=== PATIENT | female | born 1985 | race Caucasian/White ===

== ENCOUNTER → 2019-01-12 | Outpatient (CLI) | payer OTHER ==
[~2019-01-12] MED LIST: PROHANCE 279.3MG/ML 15ML VIAL (A9576) As Ordered ONE
--- NOTE | 2019-01-13 08:39 | REP ---
MRI PITUITARY WITHOUT AND WITH CONTRAST: HISTORY: Hyperprolactinemia. CONTRAST: ProHance 8 mL. There are no areas of abnormal signal intensity in the brain parenchyma. There is no intraparenchymal hemorrhage, infarct, mass or midline shift. The ventricular system is normal in appearance. There is no extracerebral collection. A 4.4 mm focus of mixed signal intensity is present in the right side of the pituitary gland. There is minimal heterogeneous enhancement with contrast. There is enlargement of the right side of the pituitary gland with extension into the suprasellar cistern. The infundibulum is midline. There is no extension into the right cavernous sinus. Minimal mucosal thickening is present in the left sphenoid sinus. IMPRESSION: There is a 4.4 mm focus of mixed signal intensity in the right side of the pituitary gland consistent with a microadenoma. Electronically Signed by Zach Saeed MD 01/13/2019 08:43 A
== END ==
LOC: M RAD 16:18
PROVIDERS: ATTEND Internal Medicine
DX: E22.1 Hyperprolactinemia (principal); E23.6 Other disorders of pituitary gland
CPT/HCPCS: 70553; A9576

== ENCOUNTER → 2020-01-17 | Outpatient (CLI) | payer OTHER ==
[~2020-01-17] MED LIST changes: -PROHANCE 279.3MG/ML 15ML VIAL (A9576) As Ordered ONE; +PROHANCE 279.3MG/ML 5ML VIAL (A9576) As Ordered ONE
--- NOTE | 2020-01-18 09:24 | REP ---
MRI BRAIN AND PITUITARY GLAND WITHOUT AND WITH IV GADOLINIUM: HISTORY: Hyperprolactinemia. Comparison MRI study January 12, 2019. This was read as showing a 4.4 mm focus of mixed signal intensity in the right side of the pituitary gland consistent with a microadenoma. CT CONTRAST DOSE: 6 mL of intravenous ProHance. MR TECHNIQUE: Axial, coronal, and sagittal imaging planes were utilized. T1 and T2-weighted sequences include spin-echo, fast spin echo, diffusion, flair, and dynamic postcontrast thin section coronal imaging. Whole brain and thin section pituitary fossa post contrast imaging is included. MRI FINDINGS: There is a slightly heterogeneous nodular area of decreased contrast enhancement just to the right of midline in the pituitary gland unchanged from the comparison study of a year ago and consistent with a pituitary microadenoma. The pituitary gland is 6-7 mm in craniocaudal height. This is unchanged. The pituitary stalk enhances normally and is in the midline. The suprasellar cistern is clear. Optic chiasm is unremarkable. No abnormality is seen in the cavernous sinus on either side. There is no abnormal intracranial contrast enhancement on whole brain postcontrast images. No vascular abnormality is seen. Diffusion weighted scans show no evidence of restricted diffusion. No other mass, extra-axial fluid collection, infarct, or midline shift is seen. There is no evidence of significant paranasal sinus disease. No intraorbital abnormality. IMPRESSION: Findings unchanged from the 1 year previous study January 12, 2019. Findings consistent with a stable 4 mm right paramedian pituitary microadenoma. Electronically Signed by Jass Rod MD 01/18/2020 10:06 A
== END ==
LOC: M RAD 15:06
PROVIDERS: ATTEND Nurse Practitioner Family
DX: E22.1 Hyperprolactinemia (principal)
CPT/HCPCS: 36415; 70553; 84146; A9576

== ENCOUNTER 2020-04-02 08:08 | Day surgery (SDC) | payer OTHER ==
[~2020-04-02] VITALS: Ht 165.1 cm; Wt 73.9 kg
[~2020-04-02 08:08] MED LIST changes: +CELE100C PO; +CONC27TA4 PO; +GABA600T4 PO; +KETOROLAC 60MG 2ML VIAL As Ordered ONE; +LATU120T PO; +LIDOCAINE 2% 100MG/5ML SDV (FOR ANES.) As Ordered ONE; +LR 1,000 ML IV ONE; +MIDAZOLAM INJ 2MG/2ML VIAL (J2250 PER 1MG) As Ordered ONE; +ONDANSETRON 4MG/2ML VIAL As Ordered ONE; -PROHANCE 279.3MG/ML 5ML VIAL (A9576) As Ordered ONE; +PROZ40CA PO; +TOPA200T7 PO; +VENTAER INH; +dexameTHASONE 4 MG/ML 1ML VIAL (J1100 PER 1MG) As Ordered ONE; +fentaNYL 100 MCG/2 ML INJECTION (J3010) As Ordered ONE; +propofoL 200 MG/20 ML VIAL As Ordered ONE
[2020-04-02] MEDS ORDERED: BUPIVACAINE/EPIN 0.25% 30 ML VIAL As Ordered ONE (08:42)
[2020-04-02] MEDS ORDERED: KLON0.5T PO (08:47)
[2020-04-02] MEDS ORDERED: CYCL5TAB PO (08:48)
[2020-04-02 08:51] LABS: HEMATOCRIT 44.7 % (36.0-47.0); HEMOGLOBIN 14.2 g/dl (12.0-15.5); MEAN CORPUSCULAR HEMOGLOBIN 29.5 pg (27.0-33.0); MEAN CORPUSCULAR HGB CONC 31.8 g/dl (32.0-36.5); MEAN CORPUSCULAR VOLUME 92.9 fl (80.0-96.0); PLATELET COUNT, AUTOMATED 257 10^3/uL (150-450); RED BLOOD COUNT 4.81 10^6/uL (4.00-5.40); WHITE BLOOD COUNT 5.8 10^3/uL (4.0-10.0)
[2020-04-02] MEDS ORDERED: ceFAZolin SOD 1 GM in D5W MINI-BAG PLUS 50 ML IV ONE (09:00)
[2020-04-02 09:06] LABS: HCG, SERUM QUALITATIVE NEGATIVE (NEGATIVE)
[2020-04-02] MEDS ORDERED: fentaNYL 100 MCG/2 ML INJECTION (J3010) IV PRN (11:30)
[2020-04-02] MEDS ORDERED: ONDANSETRON 4MG/2ML VIAL IV PRN (11:30)
[2020-04-02] MEDS ORDERED: LR 1,000 ML IV SCH (11:30)
[2020-04-02] MEDS ORDERED: METOCLOPRAMIDE INJ 10MG/2ML VIAL (J2765 PER 1) IV PRN (11:30)
[2020-04-02] MEDS ORDERED: KETOROLAC 30 MG/ML 1ML VIAL IV PRN (11:30)
--- NOTE | 2020-04-02 11:42 | POST-OPPD ---
Postoperative Procedure Note Date Of Procedure: Apr 02, 2020 PREOPERATIVE DIAGNOSIS: cervical HGSIL, left vulvar cyst POSTOPERATIVE DIAGNOSIS: cervical HGSIL FINDINGS: Decreased lugos uptake from 12-3oclock region, no vulvar cyst visualized or palpated PROCEDURE: exam under anesthesia, LEEP, ECC SURGEON: Radha Crook DO RADAR SIGNAL PROCESSING ENGINEER: none ANESTHESIA: general SPECIMENS: LEEP, ecc ESTIMATED BLOOD LOSS: < 5CC REPLACED: 800cc DRAINS: none COMPLICATIONS: none POSTOPERATIVE CONDITION: stable Detailed description of procedure: Material to lab: LEEP specimen suture at 12 oclock, ECC Description of procedure: The risks, benefits, indications and alternatives of the procedure were reviewed with the patient and informed consent was obtained. Risk of bleeding, infection, pain, need for repeat procedure, increased risk of delivery discussed with patient. She expresses understanding and desires to proceed. Patient was brought to OR with IV running. Patient placed under general anesthesia. Placed in lithotomy position. Vaginal and perineum prepped and draped. An insulated speculum placed in the vagina and cervix identified. Transformation zone visualized. Paracervical block performed using Marcain 0.25% with epi (15cc used). Parous appearing cervix. Lugols applied. Decreased uptake noted from 12-3oclock region. IUD string visualized and tucked intracervical using cutips. Loop caudery size [id number] used. Power set to 60/60. Left to right pass and tissue collected. Cervix cauderized thoroughly, hemostatic. ECC performed and cytobrush used to collect specimen. IUD string moved to external cervix, intact. Monsels placed. All instruments removed from vagina. Examining of left vulvar, no cyst visualized. Unable to palpate any abnormal mass. Vulvar cystectomy portion of procedure not performed. Count correct x 2. RADHA CROOK DO Apr 02, 2020 11:42
[2020-04-02 12:27] VITALS: BP 104/67
[2020-05-30] MEDS ORDERED: GABA-282 PO (13:44)
[2020-06-03] MEDS ORDERED: GABA-282 PO (03:19)
== END 2020-04-02 12:32 | disposition home or self-care (01) ==
LOC: M SDC 08:08
PROVIDERS: ATTEND Obstetrics & Gynecology
DX: D06.9 Carcinoma in situ of cervix, unspecified (principal); J45.909 Unspecified asthma, uncomplicated; G43.909 Migraine, unspecified, not intractable, without status migrainosus; M79.7 Fibromyalgia; F41.9 Anxiety disorder, unspecified; F31.9 Bipolar disorder, unspecified; F32.9 Major depressive disorder, single episode, unspecified; F84.0 Autistic disorder; Z79.899 Other long term (current) drug therapy; Z79.51 Long term (current) use of inhaled steroids
CPT/HCPCS: 36415; 57522; 84703; 85027; 88305; 88307; J0690; J1100; J1885; J2250; J2405; J3010

== ENCOUNTER 2020-05-21 03:40 | Inpatient (IN) | payer OTHER ==
[~2020-05-21 03:40] MED LIST changes: +CYCL5TAB PO; -KETOROLAC 60MG 2ML VIAL As Ordered ONE; +KLON0.5T PO; -LIDOCAINE 2% 100MG/5ML SDV (FOR ANES.) As Ordered ONE; -LR 1,000 ML IV ONE; -MIDAZOLAM INJ 2MG/2ML VIAL (J2250 PER 1MG) As Ordered ONE; -ONDANSETRON 4MG/2ML VIAL As Ordered ONE; -dexameTHASONE 4 MG/ML 1ML VIAL (J1100 PER 1MG) As Ordered ONE; -fentaNYL 100 MCG/2 ML INJECTION (J3010) As Ordered ONE; -propofoL 200 MG/20 ML VIAL As Ordered ONE
[2020-05-21] MEDS ORDERED: PROPOFOL 1,000 MG/100 ML VIAL ONE (22:11)
[2020-05-21] MEDS ORDERED: PROPOFOL 1,000 MG/100 ML VIAL As Ordered ONE (22:11)
[2020-05-21] MEDS ORDERED: ROCURONIUM BROMIDE 50 MG/5 ML VIAL ONE (23:30)
[2020-05-21] MEDS ORDERED: ETOMIDATE INJ 20MG/10ML VIAL ONE (23:30)
[2020-05-21] MEDS ORDERED: CHARCOAL ACTIVATED LIQUID 25 GM/120 ML BTL ONE (23:57)
[2020-05-21] MEDS ORDERED: CHARCOAL ACTIVATED LIQUID 25 GM/120 ML BTL As Ordered ONE (23:57)
[2020-05-22] MEDS ORDERED: METAL LOCK LOOP XX ONE (00:11)
[2020-05-22] MEDS ORDERED: PROPOFOL 1,000 MG/100 ML VIAL As Ordered ONE (03:49)
[2020-05-22] MEDS ORDERED: PROPOFOL 1,000 MG/100 ML VIAL ONE (03:49)
[2020-05-22] MEDS ORDERED: ENOXAPARIN 40MG/0.4ML SYRINGE (J1650 PER 10MG) As Ordered ONE (08:41)
[2020-05-22] MEDS ORDERED: ENOXAPARIN 40MG/0.4ML SYRINGE (J1650 PER 10MG) ONE (08:41)
[2020-05-22] MEDS ORDERED: PANTOPRAZOLE 40MG VIAL (C9113 PER 1) ONE (08:41)
[2020-05-22] MEDS ORDERED: PANTOPRAZOLE 40MG VIAL (C9113 PER 1) As Ordered ONE (08:42)
[2020-05-23] MEDS ORDERED: PANTOPRAZOLE 40MG VIAL (C9113 PER 1) ONE (08:55)
[2020-05-23] MEDS ORDERED: ENOXAPARIN 40MG/0.4ML SYRINGE (J1650 PER 10MG) As Ordered ONE (08:55)
[2020-05-23] MEDS ORDERED: ENOXAPARIN 40MG/0.4ML SYRINGE (J1650 PER 10MG) ONE (08:55)
[2020-05-23] MEDS ORDERED: PANTOPRAZOLE 40MG VIAL (C9113 PER 1) As Ordered ONE (08:55)
[2020-05-24] MEDS ORDERED: PANTOPRAZOLE 40MG VIAL (C9113 PER 1) ONE (09:15)
[2020-05-24] MEDS ORDERED: PANTOPRAZOLE 40MG VIAL (C9113 PER 1) As Ordered ONE (09:15)
[2020-05-24] MEDS ORDERED: ENOXAPARIN 40MG/0.4ML SYRINGE (J1650 PER 10MG) ONE (09:15)
[2020-05-24] MEDS ORDERED: ENOXAPARIN 40MG/0.4ML SYRINGE (J1650 PER 10MG) As Ordered ONE (09:16)
[2020-05-25] MEDS ORDERED: LURASIDONE 20 MG TAB (LATUDA) ONE (08:00)
[2020-05-25] MEDS ORDERED: ENOXAPARIN 40MG/0.4ML SYRINGE (J1650 PER 10MG) As Ordered ONE (08:56)
[2020-05-25] MEDS ORDERED: ENOXAPARIN 40MG/0.4ML SYRINGE (J1650 PER 10MG) ONE (08:56)
[2020-05-25] MEDS ORDERED: FLUoxetine 20 MG CAP As Ordered ONE (16:27)
[2020-05-25] MEDS ORDERED: METHYLPHENIDATE 5 MG TAB As Ordered ONE (16:27)
[2020-05-25] MEDS ORDERED: FLUoxetine 20 MG CAP ONE (16:27)
[2020-05-25] MEDS ORDERED: lamoTRIgine 25 MG TAB ONE (20:53)
[2020-05-25] MEDS ORDERED: GABAPENTIN 300 MG CAP As Ordered ONE (20:53)
[2020-05-25] MEDS ORDERED: GABAPENTIN 300 MG CAP ONE (20:53)
[2020-05-25] MEDS ORDERED: lamoTRIgine 25 MG TAB As Ordered ONE (20:53)
[2020-05-26] MEDS ORDERED: METHYLPHENIDATE 20 MG SR TAB (RITALIN SR) As Ordered ONE (09:33)
[2020-05-26] MEDS ORDERED: FLUoxetine 20 MG CAP ONE (09:33)
[2020-05-26] MEDS ORDERED: lamoTRIgine 25 MG TAB ONE (09:33)
[2020-05-26] MEDS ORDERED: FLUoxetine 20 MG CAP As Ordered ONE (09:33)
[2020-05-26] MEDS ORDERED: lamoTRIgine 25 MG TAB As Ordered ONE (09:33)
[2020-05-26] MEDS ORDERED: METHYLPHENIDATE 20 MG SR TAB (RITALIN SR) ONE (09:33)
[2020-05-26] MEDS ORDERED: CIPROFLOXACIN 500MG TABLET ONE (12:40)
[2020-05-26] MEDS ORDERED: CIPROFLOXACIN 500MG TABLET As Ordered ONE (12:40)
[2020-06-23 12:49] LABS: BASO % 0.6 % (0.0-1.0); EOS # 0.1 10^3/uL (0.0-0.5); EOS % 1.5 % (0.0-3.0); HEMATOCRIT 35.9 % (36.0-47.0); HEMOGLOBIN 11.6 g/dl (12.0-15.5); LYMPH # 1.2 10^3/uL (1.5-5.0); LYMPH % 26.4 % (24.0-44.0); MEAN CORPUSCULAR HEMOGLOBIN 29.9 pg (27.0-33.0); MEAN CORPUSCULAR HGB CONC 32.3 g/dl (32.0-36.5); MEAN CORPUSCULAR VOLUME 92.5 fl (80.0-96.0); MONO # 0.4 10^3/uL (0.0-0.8); NEUTROPHILS # 2.9 10^3/uL (1.5-8.5); NEUTROPHILS % 63.3 % (36.0-66.0); PLATELET COUNT, AUTOMATED 198 10^3/uL (150-450); RED BLOOD COUNT 3.88 10^6/uL (4.00-5.40); WHITE BLOOD COUNT 4.6 10^3/uL (4.0-10.0)
--- NOTE | 2020-06-24 15:38 | ECGEPIP ---
[facility] - ED Test Date: 2020-05-21 Pat Name: CHANDRIKA WOOD Department: Room: [place] [address] Gender: Female Service Architect: FELI : 1985 Requested By: Elisabet Mccoy Order Number: [id number] Reading MD: Conor Marinelli Measurements Intervals [place] Rate: 80 P: 60 SC: 156 QRS: 17 QRSD: 86 T: 40 QT: 412 QTc: 476 Interpretive Statements [employer] RBBB SEE SCANNED DOWNTIME REPORT
[2020-07-04 12:01] LABS: AMPHETAMINES LEVEL URINE NEGATIVE (NEGATIVE); BARBITURATES URINE NEGATIVE (NEGATIVE); BENZODIAZEPINES URINE NEGATIVE (NEGATIVE); CANNABINOIDS URINE NEGATIVE (NEGATIVE); COCAINE METABOLITE URINE NEGATIVE (NEGATIVE); METHADONE URINE NEGATIVE (NEGATIVE); OPIATES URINE NEGATIVE (NEGATIVE); PHENCYCLIDINE URINE NEGATIVE (NEGATIVE)
[2020-07-04 12:02] LABS: ACETAMINOPHEN LEVEL < 2.0 UG/ML (10.0-30.0); ALBUMIN 3.4 GM/DL (3.2-5.2); ALT/SGPT 16 U/L (12-78); BILIRUBIN,DIRECT 0.1 MG/DL (0.0-0.2); BILIRUBIN,TOTAL 0.2 MG/DL (0.2-1.0); BLOOD UREA NITROGEN 13 MG/DL (7-18); CALCIUM LEVEL 7.6 MG/DL (8.5-10.1); CARBON DIOXIDE LEVEL 22 MEQ/L (21-32); CHLORIDE LEVEL 114 MEQ/L (98-107); ETHYL ALCOHOL (ETHANOL) < 0.003 % (0.000-0.010); GLOMERULAR FILTRATION RATE > 60.0 (>60); GLUCOSE, FASTING 85 MG/DL (70-100); POTASSIUM SERUM 3.7 MEQ/L (3.5-5.1); SALICYLATE LEVEL 1.8 MG/DL (5.0-30.0); SODIUM LEVEL 143 MEQ/L (136-145); TOTAL PROTEIN 6.3 GM/DL (6.4-8.2)
[2020-07-14 01:01] LABS: BASO % 0.4 % (0.0-1.0); EOS # 0.1 10^3/uL (0.0-0.5); EOS % 1.5 % (0.0-3.0); HEMATOCRIT 43.7 % (36.0-47.0); HEMOGLOBIN 13.6 g/dl (12.0-15.5); LYMPH # 1.1 10^3/uL (1.5-5.0); LYMPH % 13.2 % (24.0-44.0); MEAN CORPUSCULAR HEMOGLOBIN 29.7 pg (27.0-33.0); MEAN CORPUSCULAR HGB CONC 31.1 g/dl (32.0-36.5); MEAN CORPUSCULAR VOLUME 95.4 fl (80.0-96.0); MONO # 0.7 10^3/uL (0.0-0.8); MONO % 9.2 % (0.0-5.0); NEUTROPHILS % 75.4 % (36.0-66.0); PLATELET COUNT, AUTOMATED 222 10^3/uL (150-450); RED BLOOD COUNT 4.58 10^6/uL (4.00-5.40)
[2020-07-14 16:42] LABS: HEMATOCRIT 37.9 % (36.0-47.0); HEMOGLOBIN 11.9 g/dl (12.0-15.5); MEAN CORPUSCULAR HEMOGLOBIN 29.8 pg (27.0-33.0); MEAN CORPUSCULAR HGB CONC 31.4 g/dl (32.0-36.5); PLATELET COUNT, AUTOMATED 186 10^3/uL (150-450); RED BLOOD COUNT 3.99 10^6/uL (4.00-5.40); WHITE BLOOD COUNT 7.7 10^3/uL (4.0-10.0)
[2020-07-20 19:07] LABS: APPEARANCE, URINE CLEAR (CLEAR); BACTERIA, URINE AUTO NEGATIVE (NEGATIVE); BILIRUBIN, URINE AUTO NEGATIVE (NEGATIVE); BLOOD, URINE BLOOD NEGATIVE (NEGATIVE); COLOR, URINE YELLOW (YELLOW); GLUCOSE, URINE (UA) AUTO NEGATIVE (NEGATIVE); KETONE, URINE AUTO NEGATIVE (NEGATIVE); LEUKOCYTE ESTERASE, URINE AUTO NEGATIVE (NEGATIVE); MUCUS, URINE SMALL (NEGATIVE); NITRITE, URINE AUTO NEGATIVE (NEGATIVE); PROTEIN, URINE AUTO NEGATIVE (NEGATIVE); RBC, URINE AUTO 1 /HPF (0-3); SPECIFIC GRAVITY URINE AUTO 1.015 (1.002-1.035); SQUAMOUS EPITHELIAL CELL UR AU 0 /HPF (0-6); UROBILINOGEN, URINE AUTO 0.2 mg/dL (0.0-2.0); WBC, URINE AUTO 1 /HPF (0-3)
[2020-08-14 15:37] LABS: ABG BASE EXCESS -7.2 (-2.0-2.0); ABG HCO3 16.2 MEQ/L (22.0-26.0); ABG MODE OF VENT RA; ABG PARTIAL PRESSURE CO2 27.4 mmHg (35.0-45.0); ABG PARTIAL PRESSURE O2 122.6 mmHg (75.0-100.0); ABG STANDARD HCO3 18.7 MEQ/L (22.0-26.0); ABG TOTAL CO2 17.1 MEQ/L (22.0-29.0)
[2020-08-14 15:38] LABS: ABG O2 SATURATION 98.9 % (95.0-99.0)
[2020-08-14 15:42] LABS: ALBUMIN 3.3 GM/DL (3.2-5.2); ALT/SGPT 14 U/L (12-78); BILIRUBIN,TOTAL 0.3 MG/DL (0.2-1.0); BLOOD UREA NITROGEN 10 MG/DL (7-18); CALCIUM LEVEL 7.7 MG/DL (8.5-10.1); CARBON DIOXIDE LEVEL 21 MEQ/L (21-32); CHLORIDE LEVEL 118 MEQ/L (98-107); CREATININE FOR GFR 0.96 MG/DL (0.55-1.30); GLOMERULAR FILTRATION RATE > 60.0 (>60); GLUCOSE, FASTING 92 MG/DL (70-100); SODIUM LEVEL 145 MEQ/L (136-145); TOTAL PROTEIN 6.2 GM/DL (6.4-8.2)
[2020-08-16 07:03] LABS: ALBUMIN 2.9 GM/DL (3.2-5.2); ALT/SGPT 11 U/L (12-78); BILIRUBIN,TOTAL 0.3 MG/DL (0.2-1.0); BLOOD UREA NITROGEN 9 MG/DL (7-18); CALCIUM LEVEL 7.4 MG/DL (8.5-10.1); CARBON DIOXIDE LEVEL 20 MEQ/L (21-32); CHLORIDE LEVEL 123 MEQ/L (98-107); CREATININE FOR GFR 0.86 MG/DL (0.55-1.30); GLOMERULAR FILTRATION RATE > 60.0 (>60); GLUCOSE, FASTING 77 MG/DL (70-100); POTASSIUM SERUM 3.9 MEQ/L (3.5-5.1); SODIUM LEVEL 148 MEQ/L (136-145); TOTAL PROTEIN 5.5 GM/DL (6.4-8.2)
== END 2020-05-26 08:12 | DRG 917 ==
LOC: M ED 03:40 → M ICU 05-22 03:40
PROVIDERS: ADMIT Internal Medicine; ATTEND Internal Medicine
DX: T42.72XA Poisoning by unspecified antiepileptic and sedative-hypnotic drugs, intentional self-harm, initial encounter (principal); J96.00 Acute respiratory failure, unspecified whether with hypoxia or hypercapnia; T43.8X2A Poisoning by other psychotropic drugs, intentional self-harm, initial encounter; T48.1X2A Poisoning by skeletal muscle relaxants [neuromuscular blocking agents], intentional self-harm, initial encounter; F31.9 Bipolar disorder, unspecified; F60.3 Borderline personality disorder; Z63.5 Disruption of family by separation and divorce; Z79.899 Other long term (current) drug therapy; F41.9 Anxiety disorder, unspecified

== ENCOUNTER 2020-05-21 22:00 | Inpatient (IN) | payer OTHER ==
[~2020-05-21] VITALS: Ht 165.1 cm; Wt 82.0 kg
[2020-05-26] MEDS ORDERED: ONDANSETRON 4MG/2ML VIAL As Ordered ONE (13:46)
[2020-05-26] MEDS ORDERED: KETOROLAC 30 MG/ML 1ML VIAL As Ordered ONE (13:46)
[2020-05-26] MEDS ORDERED: CIPROFLOXACIN 500MG TABLET As Ordered ONE (20:05)
[2020-05-26] MEDS ORDERED: traZODone 50 MG TAB As Ordered ONE (20:05)
[2020-05-26] MEDS ORDERED: GABAPENTIN 300 MG CAP As Ordered ONE (20:05)
[2020-05-27] MEDS ORDERED: METHYLPHENIDATE ER 18 MG TABLET (CONCERTA) As Ordered ONE (08:33)
[2020-05-27] MEDS ORDERED: CIPROFLOXACIN 500MG TABLET As Ordered ONE ×2 (08:33→20:37)
[2020-05-27] MEDS ORDERED: LURASIDONE HCL 40 MG TAB (LATUDA) As Ordered ONE (08:34)
[2020-05-27] MEDS ORDERED: lamoTRIgine 25 MG TAB As Ordered ONE (08:34)
[2020-05-27] MEDS ORDERED: FLUoxetine 20 MG CAP As Ordered ONE (08:34)
[2020-05-27] MEDS ORDERED: NICOTINE 21MG/24HR 1 EA TRANSDERMAL As Ordered ONE (08:35)
[2020-05-27] MEDS ORDERED: GABAPENTIN 300 MG CAP As Ordered ONE (20:37)
[2020-05-27] MEDS ORDERED: traZODone 50 MG TAB As Ordered ONE (20:38)
[2020-05-28] MEDS ORDERED: CIPROFLOXACIN 500MG TABLET As Ordered ONE (08:34)
[2020-05-28] MEDS ORDERED: FLUoxetine 20 MG CAP As Ordered ONE (08:34)
[2020-05-28] MEDS ORDERED: METHYLPHENIDATE ER 18 MG TABLET (CONCERTA) As Ordered ONE (08:34)
[2020-05-28] MEDS ORDERED: lamoTRIgine 25 MG TAB As Ordered ONE ×2 (08:34→08:36)
[2020-05-28] MEDS ORDERED: NICOTINE 21MG/24HR 1 EA TRANSDERMAL As Ordered ONE (08:35)
[2020-05-28] MEDS ORDERED: TOPIRAMATE (TopAMAX) 100 MG TAB As Ordered ONE (11:06)
[2020-05-28] MEDS ORDERED: ACETAMINOPHEN TAB 650MG DOSE (2X325MG) PO PRN (19:45)
[2020-05-28] MEDS ORDERED: MOM 30ML SUSPENSION UDC PO PRN (19:45)
[2020-05-28] MEDS ORDERED: MAALOX 30 ML SUSP *UDC PO PRN (19:45)
[2020-05-28] MEDS ORDERED: traZODone 50 MG TAB PO PRN (19:45)
[2020-05-28] MEDS: GABAPENTIN 300 MG CAP PO SCH (21:27)
[2020-05-28] MEDS: TOPIRAMATE (TopAMAX) 100 MG TAB PO SCH (21:27)
[2020-05-28] MEDS: CIPROFLOXACIN 500MG TABLET PO SCH (21:27)
[2020-05-28] MEDS: CYCLOBENZAPRINE 10MG TABLET PO PRN (21:27)
[2020-05-29] MEDS ORDERED: UNRESOLVED CLARIFICATION ENTRY XX SCH (00:01)
[2020-05-29 06:23] VITALS: BP 121/77
[2020-05-29] MEDS: CYCLOBENZAPRINE 10MG TABLET PO PRN ×2 (08:48→20:57)
[2020-05-29] MEDS: FLUoxetine 20 MG CAP PO SCH (08:48)
[2020-05-29] MEDS: lamoTRIgine 25 MG TAB PO SCH (08:49)
[2020-05-29] MEDS: TOPIRAMATE (TopAMAX) 100 MG TAB PO SCH ×2 (08:49→20:57)
[2020-05-29] MEDS: CIPROFLOXACIN 500MG TABLET PO SCH ×2 (08:49→20:57)
[2020-05-29] MEDS: AMPHETAMINE/DEXTROAMPHETAMINE 5 MG *ER* CAPSULE (ADDERALL XR) PO SCH (08:49)
[2020-05-29] MEDS: NICOTINE 21MG/24HR 1 EA TRANSDERMAL TD SCH (08:52)
[2020-05-29 16:48] VITALS: BP 117/70
[2020-05-29] MEDS: GABAPENTIN 300 MG CAP PO SCH (20:58)
[2020-05-30 06:54] VITALS: BP 142/75
[2020-05-30] MEDS: lamoTRIgine 25 MG TAB PO SCH (08:18)
[2020-05-30] MEDS: CIPROFLOXACIN 500MG TABLET PO SCH (08:18)
[2020-05-30] MEDS: CYCLOBENZAPRINE 10MG TABLET PO PRN (08:18)
[2020-05-30] MEDS: TOPIRAMATE (TopAMAX) 100 MG TAB PO SCH (08:18)
[2020-05-30] MEDS: AMPHETAMINE/DEXTROAMPHETAMINE 5 MG *ER* CAPSULE (ADDERALL XR) PO SCH (08:19)
[2020-05-30] MEDS: FLUoxetine 20 MG CAP PO SCH (08:19)
[2020-05-30] MEDS: NICOTINE 21MG/24HR 1 EA TRANSDERMAL TD SCH (08:21)
[2020-05-30] MEDS ORDERED: FLUO20CA22 PO (13:44)
[2020-05-30] MEDS ORDERED: TRAZ-252 PO (13:44)
[2020-05-30] MEDS ORDERED: LAMI25TA PO (13:44)
[2020-05-30] MEDS ORDERED: GABA-843 PO (13:44)
[2020-05-30] MEDS ORDERED: NICO21PAT TD (13:44)
[2020-05-30] MEDS ORDERED: CIPR-249 PO (13:44)
[2020-05-30] MEDS ORDERED: CYCL5TAB PO (14:06)
[2020-05-30] MEDS ORDERED: TOPA200T7 PO (14:06)
[2020-05-30] MEDS ORDERED: VENTAER INH (14:06)
[2020-05-30] MEDS ORDERED: CONC27TA4 PO (14:06)
--- NOTE | 2020-05-30 17:33 | MHDSPDOC ---
[facility] Discharge Summary Discharge Summary DATE OF ADMISSION: May 26, 2020 at 14:45 DATE OF DISCHARGE: May 30, 2020 1711 DISCHARGE DIAGNOSES: 1. Bipolar II Disorder 2. Borderline Personality Disorder REASON FOR ADMISSION: Patient is a 34 year old , Self-Employed Female who had taken an overdose of her medications after her demanded a divorce. CONSULTANTS INVOLVED: Please see hospitalist H & P report TREATMENT AND PROGRESS ON THE UNIT : Patient had individual and group therapy. She was pleasant and cooperative. Visible on the unit. Social with peers and stated that she felt group was effective. HOSPITAL COURSE: Patient was continued on most of her medications with the exception of Latuda with she had requested to be discontinued. She was agreeable to the increase in Lamictal to 50 mg She was agreeable to smoking cessation patch and felt that her current medication regimen had stabilized her. Patient was future oriented. She was reporting wanting to plan for her move to her mother's home in [place], planning her daughter's birthday democrat next month and seeing her much loved emotional support animal. While she and her are moving forward with their divorce it appears that they are speaking amicably and she states that she does not want to hinder his career by creating a financial hardship for him. Part of the decision for their divorce is the influences of other parties and the couple have an open marriage. Patient also reports that due to her Fibromyalgia and neuropathy is that she is unable to care for children and home at times. This has caused a hardship in their marriage. DISCHARGE ASSESSMENT: Patient is future-oriented. She denies suicidal or homicidal planning or intent. She is psychiatrically stable for discharge. MENTAL STATUS EXAMINATION ON DISCHARGE: Patient is a 34-year old female, who is diagnosed with Bipolar II and feels that she is stable for discharge today. Speech is normal rate tone and volume. Patient is conversant. Language skills are adequate Thought processes including: reality based, linear and goal oriented. Thought content: She is not observed and denies paranoid, nura, psychosis, auditory and visual hallucinations Abstract reasoning, and computation: Can perform basic computations Description of associations: None Description of abnormal or psychotic thoughts: None Judgment: Fair to good. Insight: Fair to good. Orientation to A + O times 4. Recent and remote memory: Intact. Attention span and concentration: Good. Language: . Fund of knowledge: good Mood: Euthymic Affect: Euthymic MEDICATIONS ON DISCHARGE: See Medication Summary PLAN/FOLLOWUP ARRANGEMENTS: Please see discharge planners notes on discharge. Patient is following up with [facility] The amount of time spent in the coordination of care for this patient was approximately 45 minutes. Vital Signs/I&Os Vital Signs Date Time Temp Pulse Resp B/P (MAP) Pulse Ox O2 Delivery O2 Flow Rate FiO2 05/30/20 06:54 98.1 77 16 142/75 (97) 05/29/20 06:23 Room Air Medications Scheduled Fluoxetine HCl (Fluoxetine HCl) 20 Mg Tablet, 60 MG PO DAILY, (Reported) Gabapentin (Gabapentin) 300 Mg Capsule, 300 MG PO QHS, (Reported) Lamotrigine (Lamotrigine) 25 Mg Tablet, 50 MG PO DAILY, (Reported) Methylphenidate HCl (Concerta) 27 Mg Tab.er.24, 27 MG PO DAILY, (Reported) Nicotine (Nicotine Patch) 21 Mg Patch.td24, 1 PATCH TD DAILY for nicotine withdrawal, #7 Topiramate (Topiramate) 200 Mg Tablet, 200 MG PO BID, (Reported) Scheduled PRN Albuterol Sulfate (Ventolin Hfa) 18 Gm Hfa.aer.ad, 2 PUFFS INH QID PRN for DYSPNEA, #1 Trazodone HCl (Trazodone HCl) 50 Mg Tablet, 50 MG PO QHS PRN for INSOMNIA, (Reported) Allergies Coded Allergies: aripiprazole (Verified Adverse Reaction, Mild, shaking, visual disturbances, 03/26/20) oxycodone (Verified Adverse Reaction, Mild, itchy, vomits, 03/26/20) TASHIA WESTFALL NP May 30, 2020 17:33
[2020-05-30 18:00] VITALS: BP 131/83
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
== END 2020-05-30 19:10 | disposition home or self-care (01) | DRG 885 ==
LOC: M ED 22:00 → M PSY 05-26 14:45
PROVIDERS: ADMIT Psychiatry & Neurology Psychiatry; ATTEND Psychiatry & Neurology Psychiatry
DX: F31.81 Bipolar II disorder (principal); F60.3 Borderline personality disorder; Z79.899 Other long term (current) drug therapy; Z88.5 Allergy status to narcotic agent; Z88.8 Allergy status to other drugs, medicaments and biological substances

== ENCOUNTER 2020-06-02 23:15 | Observation (INO) | payer OTHER ==
[~2020-06-02] VITALS: Ht 165.1 cm; Wt 77.4 kg
[~2020-06-02 23:15] MED LIST changes: +CIPR-249 PO; +FLUO20CA22 PO; +GABA-843 PO; +LAMI25TA PO; +NICO21PAT TD; +TRAZ-252 PO
[2020-06-03] VITALS (15 sets, daily range): BP systolic 116–137; BP diastolic 60–89
[2020-06-03] MEDS ORDERED: NS 1,000 ML IV ONE
[2020-06-03 00:34] LABS: HEMATOCRIT 41.7 % (36.0-47.0); HEMOGLOBIN 13.7 g/dl (12.0-15.5); MEAN CORPUSCULAR HEMOGLOBIN 30.2 pg (27.0-33.0); MEAN CORPUSCULAR HGB CONC 32.9 g/dl (32.0-36.5); MEAN CORPUSCULAR VOLUME 92.1 fl (80.0-96.0); PLATELET COUNT, AUTOMATED 318 10^3/uL (150-450); RED BLOOD COUNT 4.53 10^6/uL (4.00-5.40); WHITE BLOOD COUNT 13.9 10^3/uL (4.0-10.0)
[2020-06-03 01:03] LABS: HCG, SERUM QUALITATIVE NEGATIVE (NEGATIVE)
[2020-06-03 01:33] LABS: ACETAMINOPHEN LEVEL < 2.0 UG/ML (10.0-30.0); ALBUMIN 4.1 GM/DL (3.2-5.2); ALT/SGPT 19 U/L (12-78); BILIRUBIN,DIRECT < 0.1 MG/DL (0.0-0.2); BILIRUBIN,TOTAL 0.4 MG/DL (0.2-1.0); BLOOD UREA NITROGEN 16 MG/DL (7-18); CALCIUM LEVEL 8.4 MG/DL (8.5-10.1); CARBON DIOXIDE LEVEL 23 MEQ/L (21-32); CHLORIDE LEVEL 114 MEQ/L (98-107); CREATININE FOR GFR 0.93 MG/DL (0.55-1.30); ETHYL ALCOHOL (ETHANOL) < 0.003 % (0.000-0.010); GLOMERULAR FILTRATION RATE > 60.0 (>60); GLUCOSE, FASTING 167 MG/DL (70-100); POTASSIUM SERUM 3.6 MEQ/L (3.5-5.1); SALICYLATE LEVEL < 1.7 MG/DL (5.0-30.0); SODIUM LEVEL 142 MEQ/L (136-145); TOTAL PROTEIN 7.1 GM/DL (6.4-8.2)
[2020-06-03 02:19] LABS: AMPHETAMINES LEVEL URINE NEGATIVE (NEGATIVE); BARBITURATES URINE NEGATIVE (NEGATIVE); BENZODIAZEPINES URINE POSITIVE (NEGATIVE); CANNABINOIDS URINE NEGATIVE (NEGATIVE); COCAINE METABOLITE URINE NEGATIVE (NEGATIVE); METHADONE URINE NEGATIVE (NEGATIVE); OPIATES URINE NEGATIVE (NEGATIVE); PHENCYCLIDINE URINE NEGATIVE (NEGATIVE)
[2020-06-03] MEDS ORDERED: FLUO1TAB3 PO (03:19)
[2020-06-03] MEDS ORDERED: GABA-843 PO (03:19)
[2020-06-03] MEDS ORDERED: LAMO25TA4 PO (03:19)
[2020-06-03] MEDS ORDERED: TOPI200T7 PO (03:19)
[2020-06-03] MEDS ORDERED: CYCL5TAB PO (03:19)
[2020-06-03] MEDS ORDERED: TRAZ-252 PO (03:19)
[2020-06-03] MEDS ORDERED: PATIENT COMMENTS (03:21)
--- NOTE | 2020-06-03 03:46 | HPEPDOC ---
[facility] Medical History & Physical Date of Admission Jun 03, 2020 Date of Service: Jun 03, 2020 History and Physical CHIEF COMPLAINT: Drug overdose HISTORY OF PRESENT ILLNESS: Patient is a 34 year old female with PMH Bipolar II disorder, Asthma, fibromyalgia, Ehler Danlos syndrome was brought into the ER with reports of drug overdose. She is on a number of medications at home that she does not know the names of but med review lists flexeril, fluoxetine, gabapentin, lamotrigine, topiramate and trazodone. She states that she took whatever is left of her medications and cannot say for sure if it was all of her medications or not. She is tremulous and extremely tangential but is directable and answer questions appropriately. Denies any complaints including any chest pain, SOB, fever, chills, nausea or vomiting. Has had history of suicide ideation and admitted to [facility] in the past. Urine drug screen in ER + for benzodiazepines. PAST MEDICAL HISTORY: Refer to HPI PAST SURGICAL HISTORY: salpingectomy SOCIAL HISTORY: Smokes 1/2 ppd. "quit" alcohol. denies any drug use. FAMILY HISTORY: Mother- Sciatica ALLERGIES: Please see below. REVIEW OF SYSTEMS: 10 point ROS negative except as above HOME MEDICATIONS: Please see below. PHYSICAL EXAMINATION: - General: tremulous, tangential in conversation but directable, speaking in full sentences, AAOx3 - HEENT: Atraumatic, PERRLA - CVS: Tachycardic, normal rhythm - Lungs: Good air entry bilaterally, No appreciable wheezing / rales / rhonchi - Abdomen: Soft, Non-distended, Non-tender - Extremities: No extremity swelling, limbs intact - Skin: Warm and dry - Neuro: Diffuse tremors. Normal strength and sensory throughout. CN II-XII grossly intact. Normal reflex. LABORATORY DATA: See below. IMAGING: none MICROBIOLOGY: Please see below. ASSESSMENT AND PLAN: 1. Drug overdose - Patient does not know which medications she took but has 1 week left of her meds and includes trazodone, flexeril, fluoxetine, lamotrigine, gabapentin, topiramate. - EKG with evidence of sinus tachycardia but normal intervals. HR currently in low 100s. UA + benzodiazepines. - Patient tremulous on exam but otherwise no other significant abnormalities on exam. AAOx3, tangential. Unsure how much of how her behavior is is her baseline. - Contacted poison control around 4AM. meds reviewed. Recommended 6 hour monitoring and if symptoms resolved, can be clear after. - 1:1 observation. Monitor on telemetry in PCU. Psych consult in AM for clearance vs. transfer to [facility]. 2. Bipolar disorder: hold medications 3. Asthma: Duonebs PRN for SOB 4. Fibromyalgia: Patient is on gabapentin and flexeril. I don't recommend continuing with these given suicidality unless for other reasons. Should treat fibromyalgia pain with exercise and CBT. DVT ppx: Lovenox Code status: Full code Vital Signs Vital Signs Date Time Temp Pulse Resp B/P (MAP) Pulse Ox O2 Delivery O2 Flow Rate FiO2 06/03/20 00:00 Room Air 06/02/20 23:29 98.2 117 20 143/92 99 Laboratory Data Labs 24H Laboratory Tests 2 06/03/20 00:15: Nucleated Red Blood Cells % (auto) 0.0, Anion Gap 5L, Glomerular Filtration Rate > 60.0, Calcium Level 8.4L, Total Bilirubin 0.4, Direct Bilirubin < 0.1, Asp artate Amino Transf (AST/SGOT) 19, Alanine Aminotransferase (ALT/SGPT) 19, Alkaline Phosphatase 47, Total Protein 7.1, Albumin 4.1, Albumin/Globulin Ratio 1.4, Thyroid Stimulating Hormone (TSH) 1.750, Human Chorionic Gonadotropin, Qual NEGATIVE, Salicylates Level < 1.7L, Acetaminophen Level < 2.0L, Ethyl Alcohol Level < 0.003 06/03/20 01:30: Urine Opiates Screen NEGATIVE, Urine Methadone Screen NEGATIVE, Urine Barbiturates Screen NEGATIVE, Urine Phencyclidine Screen NEGATIVE, Urine Amphetamines Screen NEGATIVE, Urine Benzodiazepines Screen POSITIVEH, Urine Cocaine Metabolite Screen NEGATIVE, Urine Cannabinoids Screen NEGATIVE CBC/BMP Laboratory Tests 06/03/20 00:15 Home Medications Scheduled Fluoxetine HCl (Fluoxetine HCl) 20 Mg Tablet, 60 MG PO DAILY Gabapentin (Gabapentin) 300 Mg Capsule, 300 MG PO QHS Lamotrigine (Lamotrigine) 25 Mg Tablet, 50 MG PO DAILY Topiramate (Topiramate) 200 Mg Tablet, 200 MG PO BID Scheduled PRN Albuterol Sulfate (Ventolin Hfa) 18 Gm Hfa.aer.ad, 2 PUFFS INH QID PRN for DYSPNEA Cyclobenzaprine HCl (Cyclobenzaprine HCl) 5 Mg Tablet, 5 MG PO DAILY PRN for PAIN Trazodone HCl (Trazodone HCl) 50 Mg Tablet, 50 MG PO QHS PRN for INSOMNIA Miscellaneous Medications [Patient Comments] PATIENT AWARE OF MEDICATIONS BUT NOT SURE WHEN SHE TOOK THEM LAST Allergies Coded Allergies: aripiprazole (Verified Adverse Reaction, Mild, shaking, visual disturbances, 03/26/20) oxycodone (Verified Adverse Reaction, Mild, itchy, vomits, 03/26/20) A-FIB/CHADSVASC A-FIB History Current/History of A-Fib/PAF?: No EDWIN NAVA MD Jun 03, 2020 03:46
[2020-06-03] MEDS: NS 1,000 ML IV SCH ×3 (05:06→20:40)
[2020-06-03 05:47] LABS: HEMATOCRIT 37.6 % (36.0-47.0); HEMOGLOBIN 12.4 g/dl (12.0-15.5); MEAN CORPUSCULAR VOLUME 90.8 fl (80.0-96.0); PLATELET COUNT, AUTOMATED 320 10^3/uL (150-450); RED BLOOD COUNT 4.14 10^6/uL (4.00-5.40); WHITE BLOOD COUNT 12.2 10^3/uL (4.0-10.0)
[2020-06-03 06:22] LABS: BLOOD UREA NITROGEN 13 MG/DL (7-18); CALCIUM LEVEL 8.2 MG/DL (8.5-10.1); CARBON DIOXIDE LEVEL 22 MEQ/L (21-32); CHLORIDE LEVEL 117 MEQ/L (98-107); CREATININE FOR GFR 0.75 MG/DL (0.55-1.30); GLOMERULAR FILTRATION RATE > 60.0 (>60); GLUCOSE, FASTING 78 MG/DL (70-100); POTASSIUM SERUM 3.4 MEQ/L (3.5-5.1); SODIUM LEVEL 148 MEQ/L (136-145)
[2020-06-03] MEDS ORDERED: CONC27TA4 PO (08:09)
[2020-06-03] MEDS ORDERED: ONDANSETRON 4MG/2ML VIAL IV PRN (08:45)
[2020-06-03] MEDS ORDERED: ENOXAPARIN 40MG/0.4ML SYRINGE (J1650 PER 10MG) SC SCH (09:00)
--- NOTE | 2020-06-03 12:43 | MHCRPDOC ---
[facility] Consultation Consultation DATE OF CONSULTATION: 06/03/20 HPI: Dawson presents today for concerns regarding her overdose on 2 100 tablet bottles of Benadryl. Patient had recently been discharged from the mental health unit, but was readmitted due to her overdose. She notes that she overdosed due to a recent major event, but she states that she cannot remember what happened. Patient states she is ignoring what happened and is pretending it never happened. She notes she has been diagnosed with PTSD. She states she avoids certain things such as her husbands hometown because his friends harassed her until she cried, tried to convince her not to her, and called the police on her stating she is not taking care of her children. MEDICATIONS: She has tried [facility] in the past and did not do well on it. MEDICAL HISTORY: She states she had been to a psychiatric unit before during her teenage years. She had been admitted 6 times between the ages of 18 and 20. Overdosing had been the cause of one admittance. She has never had outpatient treatment such as DBT. FAMILY HISTORY: She notes her mother has anxiety and depression, and her father has anger issues, depression. Her brother has PTSD and depression and anxiety. 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 SOCIAL HISTORY - LIVING SITUATION: Patient states her husbands name is Mario, and she has two children. One child is 4-years-old and another child is 9-years-old. Objective Appearance: Appears to be stated age. Well groomed. Well nourished. Affect: Flat affect. Cognition: No signs of psychosis. Alert, Attentive, and Oriented to person, place, time. Thought Form: Linear and goal directed. Logical. Thought Content: No evidence of aggressive or homicidal ideation. No thoughts of self harm. No evidence of delusions. No evidence of suicidal ideation. Judgement: Poor judgement. 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 Holding patient for now, 1 to 1 sitter is recommended. Chauncey to take place once beds are available. Hold up on medications at this time, as she is overdosed. Recommend attending filling out 9.39 paperwork. Vital Signs Vital Signs Date Time Temp Pulse Resp B/P (MAP) Pulse Ox O2 Delivery O2 Flow Rate FiO2 06/03/20 08:00 99.0 102 18 127/61 (83) 98 Room Air Laboratory Data 24H Labs Laboratory Tests 2 06/03/20 00:15: Nucleated Red Blood Cells % (auto) 0.0, Anion Gap 5L, Glomerular Filtration Rate > 60.0, Calcium Level 8.4L, Total Bilirubin 0.4, Direct Bilirubin < 0.1, Aspartate Amino Transf (AST/SGOT) 19, Alanine Aminotransferase (ALT/SGPT) 19, Alkaline Phosphatase 47, Total Protein 7.1, Albumin 4.1, Albumin/Globulin Ratio 1.4, Thyroid Stimulating Hormone (TSH) 1.750, Human Chorionic Gonadotropin, Qual NEGATIVE, Salicylates Level < 1.7L, Acetaminophen Level < 2.0L, Ethyl Alcohol Level < 0.003 06/03/20 01:30: Urine Opiates Screen NEGATIVE, Urine Methadone Screen NEGATIVE, Urine Barbiturates Screen NEGATIVE, Urine Phencyclidine Screen NEGATIVE, Urine Amphetamines Screen NEGATIVE, Urine Benzodiazepines Screen POSITIVEH, Urine Cocaine Metabolite Screen NEGATIVE, Urine Cannabinoids Screen NEGATIVE 06/03/20 05:37: Nucleated Red Blood Cells % (auto) 0.0, Anion Gap 9, Glomerular Filtration Rate > 60.0, Calcium Level 8.2L 06/03/20 10:32: Home Medications Current Medications Current Medications Medications (Trade) Dose Ordered Sig/Ruby Route PRN Reason Start Time Stop Time Status Last Admin Dose Admin Enoxaparin Sodium (Lovenox) 40 mg DAILY SC 06/03/20 09:00 06/03/20 09:29 Home Med (Med Rec Complete!) ASDIRECTED XX 06/03/20 03:30 06/03/20 03:25 DC Home Med (Med Rec Complete!) ASDIRECTED XX 06/03/20 08:15 06/03/20 08:11 DC Ondansetron HCl (ZOFRAN INJection) 4 mg Q6HP PRN IV NAUSEA OR VOMITING 06/03/20 08:45 06/03/20 09:29 Sodium Chloride 1,000 ml @ 125 mls/hr Q8H IV 06/03/20 03:45 06/03/20 12:29 Scheduled Fluoxetine HCl (Fluoxetine HCl) 20 Mg Tablet, 60 MG PO DAILY, (Reported) Gabapentin (Gabapentin) 300 Mg Capsule, 300 MG PO QHS, (Reported) Lamotrigine (Lamotrigine) 25 Mg Tablet, 50 MG PO DAILY, (Reported) Methylphenidate HCl (Concerta) 27 Mg Tab.er.24, 27 MG PO DAILY, (Reported) Topiramate (Topiramate) 200 Mg Tablet, 200 MG PO BID, (Reported) Scheduled PRN Albuterol Sulfate (Ventolin Hfa) 18 Gm Hfa.aer.ad, 2 PUFFS INH QID PRN for DYSPNEA Trazodone HCl (Trazodone HCl) 50 Mg Tablet, 50 MG PO QHS PRN for INSOMNIA, (Reported) Allergies Coded Allergies: aripiprazole (Verified Adverse Reaction, Mild, shaking, visual disturbances, 03/26/20) oxycodone (Verified Adverse Reaction, Mild, itchy, vomits, 03/26/20) BRENNEN LOMELI DO Jun 03, 2020 12:43
--- NOTE | 2020-06-03 13:57 | DS.PDOC ---
Discharge Summary General Date of Admission Jun 03, 2020 at 03:33 Date of Discharge 06/03/20 Discharge Summary CHIEF COMPLAINT: Drug overdose FINAL DIAGNOSIS: Suicidal ideation, AMS HISTORY OF PRESENT ILLNESS AND HOSPITAL COURSE: Patient is a 34 year old female with PMH Bipolar II disorder, Asthma, fib romyalgia, Ehler Danlos syndrome was brought into the ER with reports of drug overdose. She is on a number of medications at home that she does not know the names of but med review lists flexeril, fluoxetine, gabapentin, lamotrigine, topiramate and trazodone. She states that she took whatever is left of her medications and cannot say for sure if it was all of her medications or not. She was tremulous and extremely tangential but is directable and answer questions appropriately this morning. Denies any complaints including any chest pain, SOB, fever, chills, nausea or vomiting. Has had history of suicide ideation and admitted to [facility] in the past. Lamictal levels have been send as per directions of [employer]. Psyc is consulted and as the pt is medically and hemodynamically stable , she will be admitted to [facility] if ok with psyc. EKG, labs , ari and vitals reviwed and stable. Urine drug screen in ER + for benzodiazepines. PHYSICAL EXAMINATION: - General: directable, speaking in full sentences, AAOx3 - HEENT: Atraumatic, PERRLA - CVS: Tachycardic, normal rhythm - Lungs: Good air entry bilaterally, No appreciable wheezing / rales / rhonchi - Abdomen: Soft, Non-distended, Non-tender - Extremities: No extremity swelling, limbs intact - Skin: Warm - Neuro: Normal strength and sensory throughout. CN II-XII grossly intact. Normal reflex. LABORATORY DATA: Reviewed IMAGING: none Medications on DC: All meds have been continued for now to be assessed by Psyc before restarting. In my opinion she will require readdressing of the psyc meds. F/U appiontments : F/u with PCP in 1 week Diet: Regular Condition on discharge : Medically optimized for DC Discharge Disposition : [facility] Total time spend on this discharge including coordination of care, review of chart , documentation and actual patient contact is 25 minutes. Vital Signs/I&Os Vital Signs Date Time Temp Pulse Resp B/P (MAP) Pulse Ox O2 Delivery O2 Flow Rate FiO2 06/03/20 08:00 99.0 102 18 127/61 (83) 98 Room Air I&O- Last 24 Hours up to 6 AM 06/03/20 06:00 Intake Total 1000 ml Balance 1000 ml Laboratory Data Labs 24H Laboratory Tests 2 06/03/20 00:15: Nucleated Red Blood Cells % (auto) 0.0, Anion Gap 5L, Glomerular Filtration Rate > 60.0, Calcium Level 8.4L, Total Bilirubin 0.4, Direct Bilirubin < 0.1, Aspartate Amino Transf (AST/SGOT) 19, Alanine Aminotransferase (ALT/SGPT) 19, Alkaline Phosphatase 47, Total Protein 7.1, Albumin 4.1, Albumin/Globulin Ratio 1.4, Thyroid Stimulating Hormone (TSH) 1.750, Human Chorionic Gonadotropin, Qual NEGATIVE, Salicylates Level < 1.7L, Acetaminophen Level < 2.0L, Ethyl Alcohol Level < 0.003 06/03/20 01:30: Urine Opiates Screen NEGATIVE, Urine Methadone Screen NEGATIVE, Urine Barbiturates Screen NEGATIVE, Urine Phencyclidine Screen NEGATIVE, Urine Amphetamines Screen NEGATIVE, Urine Benzodiazepines Screen POSITIVEH, Urine Cocaine Metabolite Screen NEGATIVE, Urine Cannabinoids Screen NEGATIVE 06/03/20 05:37: Nucleated Red Blood Cells % (auto) 0.0, Anion Gap 9, Glomerular Filtration Rate > 60.0, Calcium Level 8.2L 06/03/20 10:32: CBC/BMP Laboratory Tests 06/03/20 00:15 06/03/20 05:37 Discharge Medications Scheduled Fluoxetine HCl (Fluoxetine HCl) 20 Mg Tablet, 60 MG PO DAILY, (Reported) Gabapentin (Gabapentin) 300 Mg Capsule, 300 MG PO QHS, (Reported) Lamotrigine (Lamotrigine) 25 Mg Tablet, 50 MG PO DAILY, (Reported) Methylphenidate HCl (Concerta) 27 Mg Tab.er.24, 27 MG PO DAILY, (Reported) Topiramate (Topiramate) 200 Mg Tablet, 200 MG PO BID, (Reported) Scheduled PRN Albuterol Sulfate (Ventolin Hfa) 18 Gm Hfa.aer.ad, 2 PUFFS INH QID PRN for DYSPNEA Trazodone HCl (Trazodone HCl) 50 Mg Tablet, 50 MG PO QHS PRN for INSOMNIA, (Reported) Allergies Coded Allergies: aripiprazole (Verified Adverse Reaction, Mild, shaking, visual disturbances, 03/26/20) oxycodone (Verified Adverse Reaction, Mild, itchy, vomits, 03/26/20) DAVIDE MCCARTHY MD Jun 03, 2020 13:57
--- NOTE | 2020-06-24 15:40 | ECGEPIP ---
[facility] - ED Test Date: 2020-06-03 Pat Name: CHANDRIKA WOOD Department: Room: [place] [address] Gender: Female Dental Office Receptionist: FELI : 1985 Requested By: JOSÉ JAEGER Order Number: [id number] Reading MD: Conor Marinelli Measurements Intervals [place] Rate: 111 P: 48 MD: 164 QRS: 28 QRSD: 85 T: -72 QT: 257 QTc: 351 Interpretive Statements SINUS RHYTHM PRWP SEE SCANNED DOWNTIME REPORT
== END 2020-06-03 22:58 ==
LOC: EDBD 23:15 → M ED 23:15 → M ED INP 23:16 → UNDOADMOB 06-03 03:33 → M ED INP 06-03 04:34 → M ICU 06-03 04:34 → UNDODISOB 06-03 22:58
PROVIDERS: ADMIT Student in an Organized Health Care Education/Training Program; ATTEND Student in an Organized Health Care Education/Training Program
DX: R45.851 Suicidal ideations (principal); R41.82 Altered mental status, unspecified; F31.81 Bipolar II disorder; Q79.60 Ehlers-Danlos syndrome, unspecified; F43.10 Post-traumatic stress disorder, unspecified; F06.30 Mood disorder due to known physiological condition, unspecified; F60.3 Borderline personality disorder; F17.218 Nicotine dependence, cigarettes, with other nicotine-induced disorders; J45.909 Unspecified asthma, uncomplicated; M79.7 Fibromyalgia; Z79.899 Other long term (current) drug therapy; Z88.5 Allergy status to narcotic agent; Z88.8 Allergy status to other drugs, medicaments and biological substances
CPT/HCPCS: 36415; 80048; 80076; 80175; 80307; 84443; 84703; 85027; 93005; 96361; 96372; 96374; 99285; G0480; J1650; J2405

== ENCOUNTER 2020-06-03 22:25 | Inpatient (IN) | payer OTHER ==
[~2020-06-03] VITALS: Ht 165.1 cm; Wt 76.7 kg
[~2020-06-03 22:25] MED LIST changes: +FLUO1TAB3 PO; +LAMO25TA4 PO; +PATIENT COMMENTS; +TOPI200T7 PO
[2020-06-03] MEDS ORDERED: MOM 30ML SUSPENSION UDC PO PRN (22:45)
[2020-06-03] MEDS ORDERED: ACETAMINOPHEN TAB 650MG DOSE (2X325MG) PO PRN (22:45)
[2020-06-03] MEDS ORDERED: MAALOX 30 ML SUSP *UDC PO PRN (22:45)
[2020-06-03 23:08] VITALS: BP 131/84
[2020-06-04 06:51] VITALS: BP 128/83
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
[2020-06-04] MEDS: NICOTINE 21MG/24HR 1 EA TRANSDERMAL TD SCH (11:04)
[2020-06-04 12:32] VITALS: BP 128/83
[2020-06-04] MEDS ORDERED: ALBUTEROL 90 MCG/ACT 8GM HFA INHALER INH PRN (16:00)
[2020-06-04 17:18] VITALS: BP 102/61
--- NOTE | 2020-06-04 18:06 | HPEPDOC ---
General Date of Admission Jun 03, 2020 at 23:06 Date of Service: Jun 04, 2020 Chief Complaint The patient is a 34-year-old female admitted with a reason for visit of PTSD. History of Present Illness Patient is a 34 year old female with PMH Bipolar II disorder, Asthma, fibromyalgia, Ehler Danlos syndrome was brought into the ER with reports of drug overdose on 06/03/20 with possible suicidal intent and was initially admitted to Medicine for medical optimization. Once patient was medically cleared was admitted to [facility]. I a seeing the patient for medical history and physical. Today she complains of sciatica. She has dull pain in both her buttocks about 3/10 wh ich intermittently shooting down to the ankle along the back of the legs when her legs give way. Home Medications Scheduled Fluoxetine HCl (Fluoxetine HCl) 20 Mg Tablet, 60 MG PO DAILY, (Reported) Gabapentin (Gabapentin) 300 Mg Capsule, 300 MG PO QHS, (Reported) Lamotrigine (Lamotrigine) 25 Mg Tablet, 50 MG PO DAILY, (Reported) Methylphenidate HCl (Concerta) 27 Mg Tab.er.24, 27 MG PO DAILY, (Reported) Topiramate (Topiramate) 200 Mg Tablet, 200 MG PO BID, (Reported) Scheduled PRN Albuterol Sulfate (Ventolin Hfa) 18 Gm Hfa.aer.ad, 2 PUFFS INH QID PRN for DYSPNEA Trazodone HCl (Trazodone HCl) 50 Mg Tablet, 50 MG PO QHS PRN for INSOMNIA, (Reported) Allergies Coded Allergies: aripiprazole (Verified Adverse Reaction, Mild, shaking, visual disturbances, 03/26/20) oxycodone (Verified Adverse Reaction, Mild, itchy, vomits, 03/26/20) Past Medical History Medical History Bipolar II disorder, Asthma, fibromyalgia, Ehler Danlos syndrome , Sciatica, H PV infection. Surgical History Tonsillectomy, adenoidectomy, wisdom tooth removal, salpingectomy, Leep pr ocedure Family History Significant Family History: Diabetes, Heart disease, Hypertension Social History * Smoker: current smoker, less than 1 pack/day Alcohol: sober Drugs: denies A-FIB/CHADSVASC A-FIB History Current/History of A-Fib/PAF?: No Review of Systems Constitutional: Denies: Chills, Fever, Night Sweats Eyes: Denies: Pain, Vision change ENT: Denies: Head Aches, Ear Pain, Dysphagia Skin: Denies: Rash, Lesions, Breakdown Pulmonary: Denies: Dyspnea, Cough Cardiovascular: Denies: Chest Pain, Palpitations, Orthopnea, Paroxysmal Noc. Dyspnea, Lt Headedness Gastrointestinal: Denies: Nausea, Vomiting, Abdominal Pain, Diarrhea Genitourinary: Denies: Dysuria, Frequency, Incontinence, Retention Musculoskeletal: Denies: Neck Pain, Back Pain, Joint Pain, Muscle Pain, Spasms Neurological: Denies: Weakness, Numbness, Change in speech, Confusion Physical Examination General Exam: Positive: Alert, Cooperative, No Acute Distress Eye Exam: Positive: PERRLA, Conjunctiva & lids normal, EOMI; Negative: Sclera icteric ENT Exam: Positive: Atraumatic, Mucous membr. moist/pink, Pharynx Normal Neck Exam: Positive: Supple; Negative: JVD, thyromegaly Chest Exam: Positive: Clear to auscultation, Normal air movement Heart Exam: Positive: Rate Normal, Regular Rhythm, Normal S1, Normal S2; Negative: Murmurs, Rubs Abdomen Exam: Positive: Normal bowel sounds, Soft; Negative: Tenderness, Hepatospenomegaly Extremity Exam: Positive: Normal pulses; Negative: Clubbing, Cyanosis, Edema Skin Exam: Positive: Nl turgor and temperature; Negative: Breakdown, Lesion Vital Signs Vital Signs Date Time Temp Pulse Resp B/P (MAP) Pulse Ox O2 Delivery O2 Flow Rate FiO2 06/04/20 12:32 98.1 71 14 128/83 99 Room Air Assessment/Plan Patient is a 34 year old female with PMH Bipolar II disorder, Asthma, fibromyalgia, Ehler Danlos syndrome was brought into the ER with reports of drug overdose on 06/03/20 with possible suicidal intent and was initially admitted to Medicine for medical optimization. Once patient was medically cleared was admitted to [facility]. sciatica/ chronic pain/ fibromyalgia continue tylenol, gabapentin, lamotrigine, Asthma albuterol prn. Psychiatric issues as per psychiatry. Will sign off as no acute medical issues. please reconsult if needed. Plan / VTE VTE Prophylaxis Ordered?: No (freely ambulatory. ) MARITZA CORONEL MD Jun 04, 2020 15:02 TASHIA WESTFALL NP Jun 05, 2020 10:23
[2020-06-04] MEDS: traZODone 50 MG TAB PO PRN (20:42)
[2020-06-04] MEDS: GABAPENTIN 300 MG CAP PO SCH (20:42)
[2020-06-04] MEDS: TOPIRAMATE (TopAMAX) 100 MG TAB PO SCH (20:42)
[2020-06-05 06:39] VITALS: BP 118/75
[2020-06-05] MEDS: FLUoxetine 20 MG CAP PO SCH (08:58)
[2020-06-05] MEDS: NICOTINE 21MG/24HR 1 EA TRANSDERMAL TD SCH (08:58)
[2020-06-05] MEDS: TOPIRAMATE (TopAMAX) 100 MG TAB PO SCH ×2 (08:58→20:14)
[2020-06-05] MEDS: lamoTRIgine 25 MG TAB PO SCH (08:59)
[2020-06-05] MEDS ORDERED: ADDERALL 5 MG TAB PO SCH (09:00)
--- NOTE | 2020-06-05 10:37 | MHIPNPDOC ---
[facility] Progress Note Progress Note DATE OF SERVICE: 06/05/20 HISTORY: Patient is a 34 year old , Disabled, Domiciled Female. She is readmitted to Psychiatry for her second suicide attempt by overdose in 10 days. VITAL SIGNS: See below. NEW TEST RESULTS: CURRENT MEDICATIONS: See below. MENTAL STATUS EXAMINATION: Patient is a 34 year old female, who is dressed in hospital scrubs, she has short hair that is dyed green. She wears three facial piercings. She appears her stated age and she is calm and cooperative in the interview today. she presents guarded and mildly repetitive that she needs to leave because she wants to get out to start packing her things in order to leave [place] to live with her father. Currently her children ages 4 year old Boy and 8 Year old daughter are residing with her mother since her first overdose on 05/26/20. Speech: Is Slow, Monotone, Normal Volume Language skills are Good but limited today because she offered very little to the conversation in the interview Thought processes including: . Thought content: Linear and Goal Oriented Abstract reasoning, and computation: Fair Description of associations: Negative Description of abnormal or psychotic thoughts: Negative, and also denies Judgment: Poor to Fair at times Insight: Poor to Fair at times Orientation: Alert and oriented Recent and remote memory: Intact Attention span and concentration: Fair Language: Fund of knowledge: Average Mood: Depressed Affect: Flat DIAGNOSES: 1. Bipolar II, Disorder Depressed 2. Borderline Personality Disorder ASSESSMENT: Unknown length of stay. Patient is requesting discharge as soon as possible "I need to get my shit together and start working on whatever CPS wants me to do so I can see my kids" Patient appears very disingenuous today about working towards CPS criteria for being able to see her children. Patient appears very motivated to return home, but reports that her received extra leave time to see children in [place]. Patient is hoping to be discharged on Wednesday which may not be a safe discharge plan as she will be alone. Reports sleep in good, has anxiety. She presented in interview with poor eye contact, was not engaged in individual therapy session and had very little to say in the interview. When asked what she is thinking about, due to long pauses she states "I am just zoning out" MANAGEMENT PLAN: Patient will continue to stay on unit. She is not stable for discharge today. Anticipated discharge in 5-7 days TIME SPENT: 30 minutes. Vital Signs Vital Signs Date Time Temp Pulse Resp B/P (MAP) Pulse Ox O2 Delivery O2 Flow Rate FiO2 06/05/20 08:31 Room Air 06/05/20 06:39 99.2 82 14 118/75 (89) 97 Current Medications Current Medications Medications (Trade) Dose Ordered Sig/Ruby Route PRN Reason Start Time Stop Time Status Last Admin Dose Admin Acetaminophen (Tylenol Tab) 650 mg Q6HP PRN PO HEADACHE or DISCOMFORT 06/03/20 22:45 Al Hydrox/Mg Hydrox/Simethicone (Mylanta) 30 ml Q4HP PRN PO HEARTBURN/INDIGESTION 06/03/20 22:45 Albuterol Sulfate (Proventil, Ventolin Hfa) 2 puff QID PRN INH DYSPNEA 06/04/20 16:00 Amphetamine/ Dextroamphetamine (Adderall) 10 mg QAM PO 06/05/20 09:00 UNV Fluoxetine HCl (PROzac) 60 mg DAILY PO 06/05/20 09:00 06/05/20 08:58 Gabapentin (Neurontin) 300 mg QHS PO 06/04/20 21:00 06/04/20 20:42 Lamotrigine (LaMICtal) 50 mg DAILY PO 06/05/20 09:00 06/05/20 08:59 Magnesium Hydroxide (Milk Of Magnesia) 30 ml DAILYPRN PRN PO CONSTIPATION 06/03/20 22:45 Miscellaneous (Unresolved Clarification Entry) SEE LABEL COMMENTS DAILY XX 06/04/20 09:00 Nicotine (Nicoderm Cq 21mg) 1 patch DAILY TD 06/04/20 09:00 06/05/20 08:58 Topiramate (TopAMAX) 200 mg BID PO 06/04/20 21:00 06/05/20 08:58 Trazodone HCl (Desyrel) 50 mg QHSP PRN PO INSOMNIA 06/03/20 22:45 06/04/20 20:42 Allergies Coded Allergies: aripiprazole (Verified Adverse Reaction, Mild, shaking, visual disturbances, 03/26/20) oxycodone (Verified Adverse Reaction, Mild, itchy, vomits, 03/26/20) TASHIA WESTFALL NP Jun 05, 2020 10:37
[2020-06-05 16:12] VITALS: BP 164/70
[2020-06-05] MEDS: GABAPENTIN 300 MG CAP PO SCH (20:14)
[2020-06-05] MEDS: traZODone 50 MG TAB PO PRN (20:14)
[2020-06-06 05:53] VITALS: BP 104/56
[2020-06-06] MEDS: FLUoxetine 20 MG CAP PO SCH (09:42)
[2020-06-06] MEDS: NICOTINE 21MG/24HR 1 EA TRANSDERMAL TD SCH (09:42)
[2020-06-06] MEDS: lamoTRIgine 25 MG TAB PO SCH (09:44)
[2020-06-06] MEDS: TOPIRAMATE (TopAMAX) 100 MG TAB PO SCH ×2 (09:44→20:34)
[2020-06-06] MEDS: AMPHETAMINE/DEXTROAMPHETAMINE 5 MG *ER* CAPSULE (ADDERALL XR) PO SCH (09:44)
--- NOTE | 2020-06-06 11:42 | MHIPNPDOC ---
[facility] Progress Note Progress Note DATE OF SERVICE: 06/06/20 HISTORY: Patient is a 34 year old Female who was admitted for a second overdose after she was discharged last week. She reports that because she had not received her medications from the pharmacy over the weekend that she became frustrated and took the overdose. She reports that she is impulsive and has Borderline Personality Disorder, Bipolar II, Autism, ADHD. C-PTSD, Fibromyalgia, Migraines, Depression, ETOH History and Tobacco Use. VITAL SIGNS: See below. NEW TEST RESULTS: See reports of labs. CURRENT MEDICATIONS: See below. MENTAL STATUS EXAMINATION: Patient is a 34-year old female, who presents in today's interview, depressed, moderately guarded and evasive. Patient states that she is leaving to go to her Father's house to live. She is planning to leave this facility and drive to her father's house in [place]. I have expressed to her that I do not feel that this is the safest discharge plan. Patient is not engaged in the milieu, preferring to sleep in her room until she is discharged. She states that her mo tivation to leave is to be with her family and meet the criteria to be able to see her children who are with her mother in [place]. She reports that [facility] is not allowing her to see her children and that her and mother are saying that [facility] requires her to complete a "Therapy Course" In her 1:1 with this provider, patient presents with an extremely flat affect, minimal responses, her eye contact is staring at the wall behind me. Speech: Is Slow, Low, Monotone, No inflexion in speech. Language skills are Fair Thought processes including: organized, linear Thought content: Denies suicidal and homicidal ideation, but is not convincing Abstract reasoning, and computation: Fair. Description of associations: None Description of abnormal or psychotic thoughts: Negative. Judgment: Fair. Insight: Fair. Orientation: Alert and oriented. Recent and remote memory: Intact. Attention span and concentration: Fair. Language: Good Fund of knowledge: Congruent with her education. Average Mood: Depressed. Affect: Extremely flat. DIAGNOSES: 1. Bipolar II, Disorder 2 Borderline Personality Disorder 3 Autism 4 ADHD 5 C-PTSD 6 Fibromyalgia 7 Migraines 8 ETOH Use Disorder 9 Tobacco Use Disorder. ASSESSMENT: Patient is not safe for discharge today. She is hopeful for discharge tomorrow. This is undetermined at this time MANAGEMENT PLAN: Patient is continued on all her medications, no changes at this time. TIME SPENT: 40 minutes. Vital Signs Vital Signs Date Time Temp Pulse Resp B/P (MAP) Pulse Ox O2 Delivery O2 Flow Rate FiO2 06/06/20 05:53 98.2 60 16 104/56 (72) Room Air 06/05/20 16:12 97 Current Medications Current Medications Medications (Trade) Dose Ordered Sig/Ruby Route PRN Reason Start Time Stop Time Status Last Admin Dose Admin Acetaminophen (Tylenol Tab) 650 mg Q6HP PRN PO HEADACHE or DISCOMFORT 06/03/20 22:45 Al Hydrox/Mg Hydrox/Simethicone (Mylanta) 30 ml Q4HP PRN PO HEARTBURN/INDIGESTION 06/03/20 22:45 Albuterol Sulfate (Proventil, Ventolin Hfa) 2 puff QID PRN INH DYSPNEA 06/04/20 16:00 Amphetamine/ Dextroamphetamine (Adderall Xr) 10 mg QAM PO 06/06/20 09:00 06/06/20 09:44 Amphetamine/ Dextroamphetamine (Adderall) 10 mg QAM PO 06/05/20 09:00 06/05/20 13:35 DC Fluoxetine HCl (PROzac) 60 mg DAILY PO 06/05/20 09:00 06/06/20 09:42 Gabapentin (Neurontin) 300 mg QHS PO 06/04/20 21:00 06/05/20 20:14 Lamotrigine (LaMICtal) 50 mg DAILY PO 06/05/20 09:00 06/06/20 09:44 Magnesium Hydroxide (Milk Of Magnesia) 30 ml DAILYPRN PRN PO CONSTIPATION 06/03/20 22:45 Miscellaneous (Unresolved Clarification Entry) SEE LABEL COMMENTS DAILY XX 06/04/20 09:00 06/05/20 13:35 DC Nicotine (Nicoderm Cq 21mg) 1 patch DAILY TD 06/04/20 09:00 06/06/20 09:42 Topiramate (TopAMAX) 200 mg BID PO 06/04/20 21:00 06/06/20 09:44 Trazodone HCl (Desyrel) 50 mg QHSP PRN PO INSOMNIA 06/03/20 22:45 06/05/20 20:14 Allergies Coded Allergies: aripiprazole (Verified Adverse Reaction, Mild, shaking, visual disturbances, 6/16/20) oxycodone (Verified Adverse Reaction, Mild, itchy, vomits, 03/26/20) TASHIA WESTFALL NP Jun 06, 2020 11:42
[2020-06-06 17:22] VITALS: BP 140/79
[2020-06-06] MEDS: GABAPENTIN 300 MG CAP PO SCH (20:33)
[2020-06-06] MEDS: traZODone 50 MG TAB PO PRN (20:33)
[2020-06-07 06:54] VITALS: BP 115/68
[2020-06-07] MEDS: AMPHETAMINE/DEXTROAMPHETAMINE 5 MG *ER* CAPSULE (ADDERALL XR) PO SCH (10:09)
[2020-06-07] MEDS: lamoTRIgine 25 MG TAB PO SCH (10:09)
[2020-06-07] MEDS: NICOTINE 21MG/24HR 1 EA TRANSDERMAL TD SCH (10:09)
[2020-06-07] MEDS: TOPIRAMATE (TopAMAX) 100 MG TAB PO SCH ×2 (10:09→20:36)
[2020-06-07] MEDS: FLUoxetine 20 MG CAP PO SCH (10:10)
--- NOTE | 2020-06-07 11:47 | MHIPNPDOC ---
[facility] Progress Note Progress Note DATE OF SERVICE: 06/07/20 HISTORY: Patient is a 34 year old female who was admitted for overdose. VITAL SIGNS: See below. NEW TEST RESULTS: . CURRENT MEDICATIONS: See below. MENTAL STATUS EXAMINATION: Patient is a 34-year old female, who is . Speech: Is Normal Rate, Tone and Volume Language skills are Good Thought processes including: Linear and Goal Oriented Thought content: Reporting no suicidal ideation, observed to be depressed. No reports of anxiety. She is not observed to be manic, psychotic or paranoid. Abstract reasoning, and computation: Fair Description of associations: Denies Description of abnormal or psychotic thoughts: Denies Judgment: Fair Insight: Fair Orientation: Alert and oriented Recent and remote memory: Intact Attention span and concentration: Good. Language: good command of Georgian Fund of knowledge: Average. Mood: depressed. Affect: flat DIAGNOSES: 1. Bipolar II Disorder 2. Borderline Personality Disorder 3. Autism 4. C-PTSD 5. ADHD 6. Fibromyalgia 7. Migraines ASSESSMENT: Patient remains depressed but denies suicidal ideation. Per staff, she has been withdrawn to her room, makes very little effort to be in the milieu. Patient states that her goal is to be discharged. She denies thoughts of self harm. Observed to be depressed but she denies it. She reports no homicidal ideation. While she has had very little participation in the milieu, patient had reported no self harm thoughts and no thoughts to hurt others. She had been receiving phone calls from both her mother and father, her spouse Mario and her boyfriend Mark. In today's interview she reported that Mario her is providing transportation from the hospital to [place]. She also reports that her father will come to [place] to escort her to his home in [facility]. She would like me to speak to her mother regarding CPS. MANAGEMENT PLAN: Patient can be discharged today if she has a parent or spouse who will travel with her to [place] where she intends to reside with her father. TIME SPENT: 30 minutes. Vital Signs Vital Signs Date Time Temp Pulse Resp B/P (MAP) Pulse Ox O2 Delivery O2 Flow Rate FiO2 06/07/20 06:54 98.9 95 15 115/68 (84) 99 Room Air Current Medications Current Medications Medications (Trade) Dose Ordered Sig/Ruby Route PRN Reason Start Time Stop Time Status Last Admin Dose Admin Acetaminophen (Tylenol Tab) 650 mg Q6HP PRN PO HEADACHE or DISCOMFORT 06/03/20 22:45 Al Hydrox/Mg Hydrox/Simethicone (Mylanta) 30 ml Q4HP PRN PO HEARTBURN/INDIGESTION 06/03/20 22:45 Albuterol Sulfate (Proventil, Ventolin Hfa) 2 puff QID PRN INH DYSPNEA 06/04/20 16:00 Amphetamine/ Dextroamphetamine (Adderall Xr) 10 mg QAM PO 06/06/20 09:00 06/07/20 10:09 Amphetamine/ Dextroamphetamine (Adderall) 10 mg QAM PO 06/05/20 09:00 06/05/20 13:35 DC Fluoxetine HCl (PROzac) 60 mg DAILY PO 06/05/20 09:00 06/07/20 10:10 Gabapentin (Neurontin) 300 mg QHS PO 06/04/20 21:00 06/06/20 20:33 Lamotrigine (LaMICtal) 50 mg DAILY PO 06/05/20 09:00 06/07/20 10:09 Magnesium Hydroxide (Milk Of Magnesia) 30 ml DAILYPRN PRN PO CONSTIPATION 06/03/20 22:45 Miscellaneous (Unresolved Clarification Entry) SEE LABEL COMMENTS DAILY XX 06/04/20 09:00 06/05/20 13:35 DC Nicotine (Nicoderm Cq 21mg) 1 patch DAILY TD 06/04/20 09:00 06/07/20 10:09 Topiramate (TopAMAX) 200 mg BID PO 06/04/20 21:00 06/07/20 10:09 Trazodone HCl (Desyrel) 50 mg QHSP PRN PO INSOMNIA 06/03/20 22:45 06/06/20 20:33 Allergies Coded Allergies: aripiprazole (Verified Adverse Reaction, Mild, shaking, visual disturbances, 03/26/20) oxycodone (Verified Adverse Reaction, Mild, itchy, vomits, 03/26/20) TASHIA WESTFALL NP Jun 07, 2020 11:47
[2020-06-07 17:01] VITALS: BP 139/76
[2020-06-07] MEDS: GABAPENTIN 300 MG CAP PO SCH (20:36)
[2020-06-07] MEDS: traZODone 50 MG TAB PO PRN (20:37)
[2020-06-08 06:00] VITALS: BP 115/67
[2020-06-08] MEDS: lamoTRIgine 25 MG TAB PO SCH (09:00)
[2020-06-08] MEDS: FLUoxetine 20 MG CAP PO SCH (09:29)
[2020-06-08] MEDS: AMPHETAMINE/DEXTROAMPHETAMINE 5 MG *ER* CAPSULE (ADDERALL XR) PO SCH (09:30)
[2020-06-08] MEDS: TOPIRAMATE (TopAMAX) 100 MG TAB PO SCH ×2 (09:30→21:00)
[2020-06-08] MEDS: NICOTINE 21MG/24HR 1 EA TRANSDERMAL TD SCH (09:31)
[2020-06-08] MEDS: traZODone 50 MG TAB PO PRN (21:00)
[2020-06-08] MEDS: GABAPENTIN 300 MG CAP PO SCH (21:00)
[2020-06-09 06:45] VITALS: BP 119/62
[2020-06-09] MEDS: TOPIRAMATE (TopAMAX) 100 MG TAB PO SCH ×2 (09:48→20:53)
[2020-06-09] MEDS: NICOTINE 21MG/24HR 1 EA TRANSDERMAL TD SCH (09:49)
[2020-06-09] MEDS: FLUoxetine 20 MG CAP PO SCH (09:49)
[2020-06-09] MEDS: lamoTRIgine 25 MG TAB PO SCH (09:49)
[2020-06-09] MEDS: AMPHETAMINE/DEXTROAMPHETAMINE 5 MG *ER* CAPSULE (ADDERALL XR) PO SCH (09:49)
[2020-06-09 18:40] VITALS: BP 117/69
[2020-06-09] MEDS: GABAPENTIN 300 MG CAP PO SCH (20:53)
[2020-06-09] MEDS: traZODone 50 MG TAB PO PRN (20:53)
[2020-06-10 06:33] VITALS: BP 128/73
[2020-06-10] MEDS: FLUoxetine 20 MG CAP PO SCH (09:47)
[2020-06-10] MEDS: AMPHETAMINE/DEXTROAMPHETAMINE 5 MG *ER* CAPSULE (ADDERALL XR) PO SCH (09:47)
[2020-06-10] MEDS: lamoTRIgine 25 MG TAB PO SCH (09:47)
[2020-06-10] MEDS: NICOTINE 21MG/24HR 1 EA TRANSDERMAL TD SCH (09:47)
[2020-06-10] MEDS: TOPIRAMATE (TopAMAX) 100 MG TAB PO SCH ×2 (09:47→21:25)
--- NOTE | 2020-06-10 15:54 | MHIPNPDOC ---
[facility] Progress Note Progress Note DATE OF SERVICE: 06/10/20 HISTORY: Patient is a 34 year old , Disabled/Self-Employed, Domiciled, Female who returns to the hospital after a second overdose. Patient h as had 2 overdoses within ten days of each other. On this occasion, patient was discharged and was unable to get her medications from the pharmacy and due to her frustration of not having her medications she reported that she took an overdose of Benadryl VITAL SIGNS: See below. NEW TEST RESULTS: CURRENT MEDICATIONS: See below. MENTAL STATUS EXAMINATION: Patient is a 34-year old female, who [facility] after her second overdose in ten days. Speech: Is normal tone and volume Language skills are Fair Thought processes including: linear and goal oriented Thought content: Denies depression, anxiety, nura or suicidal ideation Abstract reasoning, and computation: Fair Description of associations: Denies Description of abnormal or psychotic thoughts: Denies Judgment: Fair Insight: Fair Orientation: Alert and oriented to person place and time Recent and remote memory: Intact Attention span and concentration: Good Language: Good Fund of knowledge: good Mood: Euthymic Affect: Reactive DIAGNOSES: 1. Bipolar II 2. Fibromyalgia 3. ADHD 4. Autism 5. C-PTSD ASSESSMENT: Patient presents with minimal depressive symptoms. She has denied suicidal ideation throughout this interview. Patient was initially readying herself for discharge on Wednesday. Staff did not feel patient was safe for a long transportation by herself from [place] to [place], [place]. We requested that a family member come to be with the patient and escort her transportation to [place]. She presents with improved mood and affect. States that she is sleeping better and ready to have her father pick her up. States that she is ready to get her life situation so that she can have her children return to her custody MANAGEMENT PLAN: Patient will be discharged to home with her father. He is driving to [facility] from [place]. Patient's is aware of this plan TIME SPENT: 30 minutes. Vital Signs Vital Signs Date Time Temp Pulse Resp B/P (MAP) Pulse Ox O2 Delivery O2 Flow Rate FiO2 06/10/20 06:33 97.4 80 16 128/73 (91) 06/09/20 18:40 97 Room Air Current Medications Current Medications Medications (Trade) Dose Ordered Sig/Ruby Route PRN Reason Start Time Stop Time Status Last Admin Dose Admin Acetaminophen (Tylenol Tab) 650 mg Q6HP PRN PO HEADACHE or DISCOMFORT 06/03/20 22:45 Al Hydrox/Mg Hydrox/Simethicone (Mylanta) 30 ml Q4HP PRN PO HEARTBURN/INDIGESTION 06/03/20 22:45 Albuterol Sulfate (Proventil, Ventolin Hfa) 2 puff QID PRN INH DYSPNEA 06/04/20 16:00 Amphetamine/ Dextroamphetamine (Adderall Xr) 10 mg QAM PO 06/06/20 09:00 06/10/20 09:47 Amphetamine/ Dextroamphetamine (Adderall) 10 mg QAM PO 06/05/20 09:00 06/05/20 13:35 DC Fluoxetine HCl (PROzac) 60 mg DAILY PO 06/05/20 09:00 06/10/20 09:47 Gabapentin (Neurontin) 300 mg QHS PO 06/04/20 21:00 06/09/20 20:53 Lamotrigine (LaMICtal) 50 mg DAILY PO 06/05/20 09:00 06/10/20 09:47 Magnesium Hydroxide (Milk Of Magnesia) 30 ml DAILYPRN PRN PO CONSTIPATION 06/03/20 22:45 Miscellaneous (Unresolved Clarification Entry) SEE LABEL COMMENTS DAILY XX 06/04/20 09:00 06/05/20 13:35 DC Nicotine (Nicoderm Cq 21mg) 1 patch DAILY TD 06/04/20 09:00 06/10/20 09:47 Topiramate (TopAMAX) 200 mg BID PO 06/04/20 21:00 06/10/20 09:47 Trazodone HCl (Desyrel) 50 mg QHSP PRN PO INSOMNIA 06/03/20 22:45 06/09/20 20:53 Allergies Coded Allergies: aripiprazole (Verified Adverse Reaction, Mild, shaking, visual dist urbances, 03/26/20) oxycodone (Verified Adverse Reaction, Mild, itchy, vomits, 03/26/20) TASHIA WESTFALL NP Jun 10, 2020 15:54
[2020-06-10 17:58] VITALS: BP 121/65
[2020-06-10] MEDS: GABAPENTIN 300 MG CAP PO SCH (21:25)
[2020-06-10] MEDS: traZODone 50 MG TAB PO PRN (21:25)
[2020-06-11 06:30] VITALS: BP 125/70
[2020-06-11] MEDS: lamoTRIgine 25 MG TAB PO SCH (09:08)
[2020-06-11] MEDS: FLUoxetine 20 MG CAP PO SCH (09:08)
[2020-06-11] MEDS: AMPHETAMINE/DEXTROAMPHETAMINE 5 MG *ER* CAPSULE (ADDERALL XR) PO SCH (09:08)
[2020-06-11] MEDS: NICOTINE 21MG/24HR 1 EA TRANSDERMAL TD SCH (09:08)
[2020-06-11] MEDS: TOPIRAMATE (TopAMAX) 100 MG TAB PO SCH (09:08)
[2020-06-11] MEDS ORDERED: NICO21PAT TD (10:58)
[2020-06-11] MEDS ORDERED: INFLUENZA QUADRIVALENT PF VACCINE 0.5ML SYRINGE IM ONE (11:15)
--- NOTE | 2020-06-11 11:27 | MHDSPDOC ---
[facility] Discharge Summary Discharge Summary DATE OF ADMISSION: Jun 03, 2020 at 23:06 DATE OF DISCHARGE: June 11, 2020 at 1100 DISCHARGE DIAGNOSES: 1. Bipolar II Disorder, depressed F31.81 2. ADHD 3. Autism 4. C-PTSD 5. Fibromyalgia 6. Borderline Personality Disorder 7. Migraines REASON FOR ADMISSION: Patient is a 34-year old , Disabled, Domiciled, Female who presented to this ED after she overdosed on a reported 200 tablets of Benadryl. Patient reports that her overdose occurred because she was unable to fill her prescriptions of medications after she was discharged from this unit. This was her second attempt in 10 days. Patient was admitted once prior from 05/26/20-06/03/20 after taking an overdose of all her medications with the exception of Gabapentin and Celebrex after her stated that he wanted a divorce. CONSULTANTS INVOLVED: See the Medical H&P on 06/04/20 TREATMENT AND PROGRESS ON THE UNIT : On this admission patient was afforded the followin) individual and Group Therapy, 2) Medical Management and 3) Safe Environment HOSPITAL COURSE: Patient was initially withdrawn to her room on this admission. She has been reading and often during the individual therapy she states that she is just trying to pass the time away so that she can get herself to [place]. Patient was calm and cooperative in the milieu and in therapy. She reports that on her last admission she was more manic, and appeared to be more social with peers. She states that on this occasion she is more depressed but not overly depressed. She appears to be future oriented, states that she has work that she needs to do in order to be able to get her children back in her custody. Patient's mother who currently resides in [place] has temporary custody. Patient received a phone call today from [employer], and they would like to have a face to face conversation with her. Patient will go to the office upon discharge. During discharge interview, I rev iewed with patient that she does have a history of impulsivity. She reports that took her second overdose because she was not able to get medications but that they were no other triggers and that her parents have dealt with her impulsive acts before. DISCHARGE ASSESSMENT: Patient is stable for discharge today. Patient has previous Rxs at [facility] which had not been picked up. A paper Rx for Concerta was written for the patient. All Rxs were written for patient's pharmacy in [place]. This provider called [facility], they are unable to transfer the medications to [place], according to [facility] in [place], [place] they will accept a paper Rx. Patient's scripts were written for 7-day supply with 3 refills. Patient will be able to get Rxs filled at [facility] for 7 day supply until she can get to [place]. I reviewed with the patient the medications, indications, time, route, dose and frequency. She verbalized understanding. On her last admission, I recommended DBT Therapy for her. She was reminded on this occasion that Dialectic Behavioral Therapy would be of great benefit for her. MENTAL STATUS EXAMINATION ON DISCHARGE: Patient is a 34-year old female, who is reporting to have decreased depression, no suicidal or homicidal ideation. Speech is Normal Rate tone and volume. Language skills are Good Thought processes including: linear and goal oriented Thought content: Denies depression, anxiety, nura or paranoia. Denies suicidal ideation. Abstract reasoning, and computation: Fair Description of associations: None Description of abnormal or psychotic thoughts: None Judgment: Good Insight: Good Orientation to alert and oriented to self Recent and remote memory: Intact Attention span and concentration: Good Language: Good Fund of knowledge: Above Average Mood: Euthymic Affect: Reactive MEDICATIONS ON DISCHARGE: see medication reconciliation PLAN/FOLLOWUP ARRANGEMENTS: Please see kit planner's notes The amount of time spent in the coordination of care for this patient was approximately 45 minutes. Vital Signs/I&Os Vital Signs Date Time Temp Pulse Resp B/P (MAP) Pulse Ox O2 Delivery O2 Flow Rate FiO2 06/11/20 06:30 97.4 76 16 125/70 (88) 06/09/20 18:40 97 Room Air Medications Scheduled Fluoxetine HCl (Fluoxetine HCl) 20 Mg Tablet, 60 MG PO DAILY, (Reported) Gabapentin (Gabapentin) 300 Mg Capsule, 300 MG PO QHS, (Reported) Lamotrigine (Lamotrigine) 25 Mg Tablet, 50 MG PO DAILY, (Reported) Methylphenidate HCl (Concerta) 27 Mg Tab.er.24, 27 MG PO DAILY, (Reported) Nicotine (Nicotine Patch) 21 Mg Patch.td24, 1 PATCH TD DAILY for nicotine withdrawal, #7 Topiramate (Topiramate) 200 Mg Tablet, 200 MG PO BID, (Reported) Scheduled PRN Albuterol Sulfate (Ventolin Hfa) 18 Gm Hfa.aer.ad, 2 PUFFS INH QID PRN for DYSPNEA, #1 Trazodone HCl (Trazodone HCl) 50 Mg Tablet, 50 MG PO QHS PRN for INSOMNIA, (Reported) Allergies Coded Allergies: aripiprazole (Verified Adverse Reaction, Mild, shaking, visual disturbances, 03/26/20) oxycodone (Verified Adverse Reaction, Mild, itchy, vomits, 03/26/20) TASHIA WESTFALL NP Jun 11, 2020 11:26
--- NOTE | 2020-07-17 15:21 | MHIPN ---
DATE: 06/08/2020 SUBJECTIVE: The patient today tells me that he is doing good. Denies suicidal thoughts. MENTAL STATUS EXAM: Patient is alert and oriented x3, eye contact is stare, psychomotor activity is decreased. No formal thought disorder is noted. She says her mood is good. Affect is flat. He is not psychotic or suicidal. Formal concentration. Insight and judgment fair. DIAGNOSIS: 1. Bipolar disorder. 2. Borderline personality disorder. 3. Autism. TREATMENT PLAN: At this time will continue stabilization of mood and resolution of suicidal ideation. HEMALATHA
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
== END 2020-06-11 13:35 | disposition home or self-care (01) | DRG 885 ==
LOC: M PSY 23:06
PROVIDERS: ADMIT Psychiatry & Neurology Addiction Medicine; ATTEND Psychiatry & Neurology Psychiatry
DX: F31.81 Bipolar II disorder (principal); M79.7 Fibromyalgia; G43.909 Migraine, unspecified, not intractable, without status migrainosus; F84.9 Pervasive developmental disorder, unspecified; F43.10 Post-traumatic stress disorder, unspecified; Z79.899 Other long term (current) drug therapy; Z88.5 Allergy status to narcotic agent; Z88.8 Allergy status to other drugs, medicaments and biological substances; J45.909 Unspecified asthma, uncomplicated